=== PATIENT | female | born 1990 | race Two or more races ===

== ENCOUNTER 2021-06-18 20:52 | Emergency (ER) | payer SELFPAY ==
[~2021-06-18] VITALS: Ht 162.6 cm; Wt 60.3 kg
--- NOTE | 2021-06-18 21:39 | NUR ---
PATIENT BIBFAMILY C/O PELVIC PAIN RADIATING TO BACK BILATERALLY FOR THE PAST FEW DAYS. PATIENT IS A/O X 4, RR EVEN AND UNLABORED. PATIENT TAKEN TO ER BED 17.
--- NOTE | 2021-06-18 22:05 | NUR ---
US AT BEDSIDE
[2021-06-18 22:14] LABS: BASOPHILS % (AUTO) 0.3 % (0.0-2.0); EOSINOPHILS % (AUTO) 2.1 % (0.0-6.0); HEMATOCRIT 43 % (33-45); HEMOGLOBIN 13.9 g/dL (11.5-14.8); LYMPHOCYTES # (AUTO) 1.4 K/uL (0.8-4.8); LYMPHOCYTES % (AUTO) 19.8 % (20.0-44.0); MEAN CORPUSCULAR HGB CONC 33 g/dl (31.0-36.0); MEAN CORPUSCULAR VOLUME 89 fL (82-100); MONOCYTES # (AUTO) 0.4 K/uL (0.1-1.30); MONOCYTES % (AUTO) 5.9 % (2.0-12.0); NEUTROPHILS # (AUTO) 5.1 K/uL (1.8-8.9); NEUTROPHILS % (AUTO) 71.9 % (43.0-81.0); PLATELET COUNT (AUTO) 201 K/uL (150-450); WHITE BLOOD COUNT (AUTO) 7.2 K/uL (4.3-11.0)
--- NOTE | 2021-06-18 22:32 | NUR ---
URINE COLLECTED AND SENT TO LAB
[2021-06-18 22:33] LABS: BILIRUBIN,DIRECT 0.1 mg/dL (0.0-0.2); BILIRUBIN,TOTAL 0.5 mg/dL (0.2-1.0); CALCIUM, SERUM 8.9 mg/dL (8.5-10.1); CREATININE 0.9 mg/dL (0.6-1.3); POTASSIUM 3.9 mmol/L (3.5-5.1); TOTAL PROTEIN, SERUM 8.1 g/dL (6.4-8.2)
[2021-06-18 23:25] LABS: BILIRUBIN,URINE NEGATIVE (NEGATIVE); COLOR,URINE YELLOW (YELLOW); LEUKOCYTE ESTERASE ,URINE NEGATIVE (NEGATIVE); NITRITE, URINE NEGATIVE (NEGATIVE); PH,URINE 6.5 (5.0-8.0); PROTEIN,URINE NEGATIVE (NEGATIVE); UGLUCOSE NEGATIVE (NEGATIVE); UROBILINOGEN,URINE 0.2 EU/dL (0.2)
[2021-06-19 00:30] VITALS: BP 123/67
--- NOTE | 2021-06-19 01:01 | NUR ---
Patient discharged to home in stable condition. Written and verbal after care instructions given. Patient verbalizes understanding of instruction.
== END 2021-06-19 01:02 | disposition home or self-care (01) ==
LOC: ER 21:05
DX: N83.202 Unspecified ovarian cyst, left side (principal)
CPT/HCPCS: 36415; 76856-TC; 80048-TC; 80076-TC; 83690-TC; 84703-TC; 85025-TC

== ENCOUNTER 2021-12-26 15:19 | Emergency (ER) | payer MEDICAID, OTHER ==
[~2021-12-26] VITALS: Ht 162.6 cm; Wt 56.7 kg
[2021-12-26] MEDS ORDERED: diphenhydrAMINE HCL 50 MG CAPSULE PO ONE (16:30)
[2021-12-26] MEDS ORDERED: predniSONE 10 MG TABLET PO ONE (16:30)
[2021-12-26] MEDS ORDERED: FAMOTIDINE (20 MG) 20 MG TABLET PO ONE (16:30)
[2021-12-26] MEDS ORDERED: PRED50TA PO (16:37)
[2021-12-26] MEDS ORDERED: FAMO-131 PO (16:37)
[2021-12-26] MEDS ORDERED: DIPH50CA4 PO (16:37)
[2021-12-26] MEDS ORDERED: predniSONE 20 MG TABLET ONE (16:43)
[2021-12-26] MEDS ORDERED: diphenhydrAMINE HCL 50 MG CAPSULE ONE (16:43)
[2021-12-26] MEDS ORDERED: FAMOTIDINE (20 MG) 20 MG TABLET ONE (16:44)
--- NOTE | 2021-12-26 16:51 | NUR ---
PER PT, SHE TOOK A NEW PRESCRIPTION OF LEXAPRO 10MG AND MAY BE ALLERGIC TO MEDICATION.
--- NOTE | 2021-12-26 17:17 | NUR ---
Patient discharged to home in stable condition. Written and verbal after care instructions given. Patient verbalizes understanding of instruction.
[2021-12-26 17:18] VITALS: BP 127/74
== END 2021-12-26 17:19 | disposition home or self-care (01) ==
LOC: ER 15:23
DX: R21 Rash and other nonspecific skin eruption (principal); T43.225A Adverse effect of selective serotonin reuptake inhibitors, initial encounter; F32.A Depression, unspecified; Z88.8 Allergy status to other drugs, medicaments and biological substances; Z79.899 Other long term (current) drug therapy; Y92.89 Other specified places as the place of occurrence of the external cause
CPT/HCPCS: 99284; Q0163; J7512 ×2